=== PATIENT | female | born 1990 | race Two or more races ===

== ENCOUNTER 2025-03-01 10:40 | Outpatient (CLI) | payer OTHER | END 2025-03-01 10:44 | disposition home or self-care (01) | LOC: PRENATAL 10:40 | PROVIDERS: ATTEND Obstetrics & Gynecology Maternal & Fetal Medicine | DX: O36.80X0 Pregnancy with inconclusive fetal viability, not applicable or unspecified (principal); Z36.82 Encounter for antenatal screening for nuchal translucency; O99.210 Obesity complicating pregnancy, unspecified trimester; Z14.8 Genetic carrier of other disease; Z3A.13 13 weeks gestation of pregnancy ==

== ENCOUNTER → 2025-04-11 | Emergency (ER) | payer OTHER ==
[2025-04-11 21:12] LABS: HEMATOCRIT 34.4 % (34.1-44.9); HEMOGLOBIN 10.9 g/dL (11.2-15.7); LYMPH % 28.4 % (19.3-53.1); MEAN CORPUSCULAR HEMOGLOBIN 22.2 pg (25.6-32.2); NEUT % 63.8 % (34.0-71.1); PLATELET COUNT 330 K/uL (163-369)
[2025-04-11 21:13] LABS: BASO % 0.3 % (0.1-1.2); EOS # 0.14 (0.04-0.54); EOS % 1.2 % (0.7-7.0); LYMPH # 3.28 (1.18-3.74); MONO # 0.69 (0.24-0.82); NEUT # 7.38 (1.56-6.13)
[2025-04-11 21:22] LABS: INR 0.95; PARTIAL THROMBOPLASTIN TIME 25.9 SECONDS (22.0-34.0); PROTHROMBIN TIME 10.4 SECONDS (9.0-11.5)
[2025-04-11 21:27] LABS: ALBUMIN 2.7 gm/dL (3.4-5.0); ALKALINE PHOSPHATASE 64 U/L (50-136); ALT/SGPT 26 U/L (12-78); ANION GAP 9 (10.0-20.0); AST/SGOT 22 U/L (15-37); BLOOD UREA NITROGEN 8 mg/dL (7-18); BUN CREA RATIO 17 (7.0-25.0); CALCIUM 8.8 mg/dL (8.5-10.1); CARBON DIOXIDE 27 mEq/L (21-32); CHLORIDE 107 mmol/L (98-107); CREATININE SERUM 0.48 mg/dL (0.55-1.02); GFR 148.94; GLOBULINA 3.8 G/DL (2.4-3.5); GLUCOSE FASTING 84 mg/dL (65-100); OSMOLALITY SERUM 275 MOSM/KG (275-295); POTASSIUM 4.13 mEq/L (3.5-5.1); SODIUM 139 mmol/L (136-145); TOTAL PROTEIN 6.5 gm/dL (6.4-8.2)
[2025-04-11 21:39] LABS: BILIRUBIN TOTAL < 0.10 mg/dL (0.3-1.2)
[2025-04-11 22:05] LABS: PH,URINE 6.5 (5.0-8.0); URINE APPEARANCE Clear; URINE BILIRRUBIN Negative (NEGATIVE); URINE BLOOD Negative; URINE COLOR Yellow; URINE GLUCOSE Negative (NEGATIVE); URINE KETONE Negative (NEGATIVE); URINE LEUKOCYTE Negative; URINE NITRATE Negative; URINE PROTEIN Negative (NEGATIVE); URINE UROBILINOGEN 0.2 E.U./dl
[2025-04-11 22:08] LABS: URINE BACTERIA 74.5 uL (0.0-1933); URINE EPITHELIAL CELLS 2.5 uL (0.0-38.8)
[2025-04-11 22:11] LABS: URINE RBC 1.3 uL (0.0-20.8); URINE WBC 1.7 uL (0.0-23.2)
== END | disposition home or self-care (01) ==
LOC: ER 13:36
PROVIDERS: Preventive Medicine Public Health & General Preventive Medicine
DX: O26.892 Other specified pregnancy related conditions, second trimester (principal); Z3A.18 18 weeks gestation of pregnancy; R10.2 Pelvic and perineal pain

== ENCOUNTER → 2025-04-26 12:13 | Outpatient (CLI) | payer OTHER | END | disposition home or self-care (01) | LOC: PRENATAL 12:13 | PROVIDERS: ATTEND Obstetrics & Gynecology Maternal & Fetal Medicine | DX: O44.00 Complete placenta previa NOS or without hemorrhage, unspecified trimester (principal); O99.210 Obesity complicating pregnancy, unspecified trimester; Z3A.20 20 weeks gestation of pregnancy ==

== ENCOUNTER 2025-06-24 09:50 | Outpatient (CLI) | payer OTHER | END 2025-06-24 09:53 | disposition home or self-care (01) | LOC: PRENATAL 09:50 | PROVIDERS: ATTEND Obstetrics & Gynecology Maternal & Fetal Medicine | DX: O26.849 Uterine size-date discrepancy, unspecified trimester (principal); O99.210 Obesity complicating pregnancy, unspecified trimester; O99.019 Anemia complicating pregnancy, unspecified trimester; Z3A.28 28 weeks gestation of pregnancy ==

== ENCOUNTER 2025-08-02 08:37 | Outpatient (CLI) | payer OTHER ==
[2025-08-03] MEDS ORDERED: IRON236 MG PO (19:54)
[2025-08-03] MEDS ORDERED: CHILDREN'S ASPI81 MG PO (19:54)
[2025-08-03] MEDS ORDERED: PRENATABS RX T1 EACH PO (19:54)
== END 2025-08-02 08:40 | disposition home or self-care (01) ==
LOC: PRENATAL 08:37
PROVIDERS: ATTEND Obstetrics & Gynecology Maternal & Fetal Medicine
DX: O26.849 Uterine size-date discrepancy, unspecified trimester (principal); O36.8130 Decreased fetal movements, third trimester, not applicable or unspecified; O99.210 Obesity complicating pregnancy, unspecified trimester; O99.019 Anemia complicating pregnancy, unspecified trimester; Z3A.35 35 weeks gestation of pregnancy

== ENCOUNTER 2025-08-03 19:27 | Outpatient (CLI) | payer OTHER ==
[2025-08-03 18:45] VITALS: BP 102/67
[2025-08-03] MEDS ORDERED: CHILDREN'S ASPI81 MG PO (19:54)
[2025-08-03] MEDS ORDERED: IRON236 MG PO (19:54)
[2025-08-03] MEDS ORDERED: PRENATABS RX T1 EACH PO (19:54)
[2025-08-03] MEDS ORDERED: RINGERS SOLUTION,LACTATED 1,000 ML IV SCH (20:00)
[2025-08-03 20:28] LABS: BASO % 0.1 % (0.1-1.2); EOS # 0.13 (0.04-0.54); EOS % 1.4 % (0.7-7.0); LYMPH # 2.66 (1.18-3.74); LYMPH % 28.0 % (19.3-53.1); MEAN PLATELET VOLUME 9.90 fl (9.4-12.4); MONO # 0.71 (0.24-0.82); MONO % 7.5 % (4.7-12.5); NEUT # 5.95 (1.56-6.13); NEUT % 62.7 % (34.0-71.1); RED CELL DISTRIBUTION WIDTH 16.5 % (11.6-14.4)
[2025-08-03 20:30] LABS: URINE APPEARANCE Clear; URINE BILIRRUBIN Negative (NEGATIVE); URINE BLOOD Negative; URINE COLOR Dark Yellow; URINE GLUCOSE Negative (NEGATIVE); URINE KETONE Trace (NEGATIVE); URINE LEUKOCYTE Trace; URINE NITRATE Negative; URINE PROTEIN 30 (NEGATIVE); URINE UROBILINOGEN 1.0 E.U./dl
[2025-08-03 20:33] LABS: URINE BACTERIA 1202.2 uL (0.0-1933); URINE EPITHELIAL CELLS 34.4 uL (0.0-38.8); URINE RBC 16.7 uL (0.0-20.8); URINE WBC 16.9 uL (0.0-23.2)
[2025-08-03 20:51] LABS: URINE CAST 0.14 uL (0.0-1.40); URINE CRYSTALS FEW /HPF; URINE MUCUS HEAVY
[2025-08-03 20:52] LABS: ALT/SGPT 14.0 U/L (12-78); AST/SGOT 10.0 U/L (15-37); BILIRUBIN TOTAL 0.27 mg/dL (0.3-1.2); BUN CREA RATIO 15.0 (7.0-25.0); CREATININE SERUM 0.59 mg/dL (0.55-1.02); GFR 117.38; GLOBULINA 4.0 G/DL (2.4-3.5); GLUCOSE FASTING 86.0 mg/dL (65-100); OSMOLALITY SERUM 277.0 MOSM/KG (275-295)
[2025-08-03 23:34] VITALS: BP 91/61
[2025-08-04 04:16] VITALS: BP 95/64
[2025-08-04 06:36] VITALS: BP 85/58; O2SAT 97
[2025-08-04] MEDS ORDERED: SOD FERRIC GLUC COMPLX/SUCROSE 125 MG in 0.9 % SODIUM CHLORIDE 100 ML IV SCH (09:09)
[2025-08-04] MEDS ORDERED: SOD FERRIC GLUC COMPLX/SUCROSE 62.5 MG/5 ML AMPUL IV ONE (09:19)
[2025-08-04 12:12] VITALS: BP 90/64
[2025-08-04 15:06] VITALS: BP 102/70; O2SAT 98
[2025-08-04 17:29] VITALS: BP 102/70
== END 2025-08-04 17:29 | disposition home or self-care (01) ==
LOC: OBS/DEL 19:27
PROVIDERS: ATTEND Obstetrics & Gynecology
DX: O26.893 Other specified pregnancy related conditions, third trimester (principal); O36.8130 Decreased fetal movements, third trimester, not applicable or unspecified; O60.00 Preterm labor without delivery, unspecified trimester; O26.859 Spotting complicating pregnancy, unspecified trimester; O99.019 Anemia complicating pregnancy, unspecified trimester; R10.2 Pelvic and perineal pain; Z3A.34 34 weeks gestation of pregnancy

== ENCOUNTER 2025-09-05 05:09 | Inpatient (IN) | payer OTHER ==
[~2025-09-05] VITALS: Ht 157.5 cm; Wt 3.2 kg
[~2025-09-05 05:09] MED LIST: AMPICILLIN SODIUM 2,000 MG VIAL ONE; CHILDREN'S ASPI81 MG PO; IRON236 MG PO; PRENATABS RX T1 EACH PO
[2025-09-05 05:30] VITALS: BP 106/67
[2025-09-05] MEDS ORDERED: AMPICILLIN SODIUM 2,000 MG VIAL IV ONE (05:45)
[2025-09-05 06:37] LABS: URINE APPEARANCE Clear; URINE BILIRRUBIN Negative (NEGATIVE); URINE BLOOD Negative; URINE COLOR Yellow; URINE GLUCOSE Negative (NEGATIVE); URINE KETONE Negative (NEGATIVE); URINE LEUKOCYTE Negative; URINE NITRATE Negative; URINE PROTEIN Trace (NEGATIVE); URINE UROBILINOGEN 0.2 E.U./dl
[2025-09-05 06:38] LABS: URINE BACTERIA 310.7 uL (0.0-1933); URINE EPITHELIAL CELLS 17.8 uL (0.0-38.8); URINE RBC 17.0 uL (0.0-20.8); URINE WBC 9.9 uL (0.0-23.2)
[2025-09-05 06:41] LABS: URINE CAST 0.00 uL (0.0-1.40)
[2025-09-05 07:14] LABS: BASO % 0.2 % (0.1-1.2); EOS # 0.09 (0.04-0.54); EOS % 1.0 % (0.7-7.0); LYMPH # 2.85 (1.18-3.74); LYMPH % 33.0 % (19.3-53.1); MEAN PLATELET VOLUME 10.40 fl (9.4-12.4); MONO # 0.48 (0.24-0.82); MONO % 5.6 % (4.7-12.5); NEUT # 5.17 (1.56-6.13); NEUT % 59.9 % (34.0-71.1); RED CELL DISTRIBUTION WIDTH 18.5 % (11.6-14.4)
[2025-09-05 07:28] VITALS: BP 129/76
[2025-09-05 07:40] LABS: INR < 0.93
[2025-09-05 07:47] LABS: ALT/SGPT 14.0 U/L (12-78); AST/SGOT 14.0 U/L (15-37); BILIRUBIN TOTAL 0.24 mg/dL (0.3-1.2); BUN CREA RATIO 20.0 (7.0-25.0); CREATININE SERUM 0.66 mg/dL (0.55-1.02); GFR 103.14; GLOBULINA 4.1 G/DL (2.4-3.5); GLUCOSE FASTING 85.0 mg/dL (65-100); OSMOLALITY SERUM 277.0 MOSM/KG (275-295)
[2025-09-05] MEDS ORDERED: MISOPROSTOL 25 MCG/4 ML GEL.W.APPL VAG STA ×2 (08:17→14:16)
[2025-09-05] MEDS ORDERED: AMPICILLIN SODIUM 1,000 MG VIAL IV SCH (09:00)
[2025-09-05 11:36] VITALS: BP 113/62
[2025-09-05 15:10] VITALS: BP 124/70
[2025-09-05 20:02] VITALS: BP 116/67
[2025-09-05 23:20] VITALS: BP 114/72
[2025-09-06 04:00] VITALS: BP 92/64
[2025-09-06] MEDS ORDERED: OXYTOCIN 20 UNITS/500ML RL PIGGYBAG IV ONE (07:31)
[2025-09-06 07:49] VITALS: BP 97/62
[2025-09-06] MEDS ORDERED: OXYTOCIN 500 ML IV SCH (08:00)
[2025-09-06] MEDS ORDERED: MORPHINE SULFATE 4 MG/ML CARTRIDGE IV STA (09:47)
[2025-09-06 09:58] VITALS: BP 147/78
[2025-09-06] MEDS ORDERED: OXYTOCIN 10 UNITS/ML VIAL ONE ×2 (12:02→16:03)
[2025-09-06] MEDS ORDERED: ERYTHROMYCIN BASE OPHT 1GM EACH TUBE OP ONE (12:02)
[2025-09-06] MEDS ORDERED: MORPHINE SULFATE 4 MG/ML CARTRIDGE IV PRN (13:45)
[2025-09-06] MEDS ORDERED: OXYTOCIN 1,000 ML IV SCH (15:30)
[2025-09-06] MEDS ORDERED: RINGERS SOLUTION,LACTATED 1,000 ML IV SCH (15:30)
[2025-09-06 16:13] LABS: BASO % 0.3 % (0.1-1.2); EOS # 0.01 (0.04-0.54); EOS % 0.1 % (0.7-7.0); LYMPH # 1.17 (1.18-3.74); LYMPH % 8.0 % (19.3-53.1); MEAN PLATELET VOLUME 9.60 fl (9.4-12.4); MONO # 0.60 (0.24-0.82); MONO % 4.1 % (4.7-12.5); NEUT # 12.76 (1.56-6.13); NEUT % 87.1 % (34.0-71.1); RED CELL DISTRIBUTION WIDTH 18.6 % (11.6-14.4)
[2025-09-06] MEDS ORDERED: DOCUSATE SODIUM 100MG CAP PO SCH (17:00)
[2025-09-06 17:18] VITALS: BP 132/78
[2025-09-06] MEDS ORDERED: KETOROLAC TROMETHAMINE 30 MG VIAL IM PRN (17:30)
[2025-09-06] MEDS ORDERED: SIMETHICONE 125 MG CAPSULE PO SCH (18:00)
[2025-09-06 21:50] VITALS: BP 137/81
[2025-09-07] VITALS: BP 95/55
[2025-09-07 08:00] VITALS: BP 100/61
[2025-09-07 16:00] VITALS: BP 105/72
[2025-09-08 00:51] VITALS: BP 99/53
[2025-09-08 19:07] VITALS: BP 134/85
[2025-09-09 01:00] VITALS: BP 140/80
[2025-09-09 08:00] VITALS: BP 106/73
== END 2025-09-09 13:50 | disposition home or self-care (01) | DRG 787 ==
LOC: OB/GYN 05:09 → LDR 05:09 → OB/GYN 09:52
PROVIDERS: ADMIT Obstetrics & Gynecology; ATTEND Obstetrics & Gynecology
PROC: 4A1HXCZ Monitoring of Products of Conception, Cardiac Rate, External Approach (ICD-10-PCS; 2025-09-05)
PROC: 3E0P7VZ Introduction of Hormone into Female Reproductive, Via Natural or Artificial Opening (ICD-10-PCS; 2025-09-05)
PROC: 3E033VJ Introduction of Other Hormone into Peripheral Vein, Percutaneous Approach (ICD-10-PCS; 2025-09-06)
PROC: 10D00Z1 Extraction of Products of Conception, Low, Open Approach (ICD-10-PCS; principal; 2025-09-06 15:30)
DX: O82 Encounter for cesarean delivery without indication (principal); Z68.43 Body mass index [BMI] 50.0-59.9, adult; O99.214 Obesity complicating childbirth; E66.9 Obesity, unspecified; Z3A.39 39 weeks gestation of pregnancy; Z37.0 Single live birth; O99.824 Streptococcus B carrier state complicating childbirth